=== PATIENT | male | born 1990 | race African-American/Black ===

== ENCOUNTER → 2018-07-23 | Outpatient (REF) | payer OTHER ==
[2018-07-23 14:57] LABS: SEMEN APPEARANCE OPAQUE (OPAQUE)
[2018-07-23 14:59] LABS: SEMEN VISCOSITY VISCOUS (LIQUID); SEMEN VOLUME 2.5 ml (4.0-5.0)
[2018-07-23 15:00] LABS: SEMEN pH 8.5 (7.0-8.0); SPERM CONCENTRATION 57.4 M/ml (>=15.0); WBC CONCENTRATION <=1 M/ml (<=1 M/ml)
== END ==
LOC: M LAB REF 13:59
PROVIDERS: ATTEND Obstetrics & Gynecology
DX: N46.9 Male infertility, unspecified (principal)

== ENCOUNTER 2018-11-27 09:38 | Emergency (ER) | payer OTHER ==
[~2018-11-27] VITALS: Ht 170.2 cm; Wt 72.7 kg
[2018-11-27] MEDS ORDERED: NAPROXEN 250 MG TAB PO ONE (10:00)
[2018-11-27] MEDS ORDERED: ACETAMINOPHEN 500 MG TAB PO ONE (10:00)
--- NOTE | 2018-11-27 10:34 | REP ---
Thoracic spine series: Three views. History: Remote trauma. Pain. Findings: Thoracic vertebral body heights are preserved. Alignment is normal. Disc spaces are maintained. No paravertebral soft-tissue swelling or mass is seen. Pedicles and posterior elements are intact. Impression: Negative thoracic spine radiographs. Electronically Signed by Jonathon Mancera MD 11/27/2018 10:26 A
--- NOTE | 2018-11-27 10:35 | REP ---
Lumbar spine series: Five views. History: Remote trauma. Rule out compression fracture versus degenerative disc disease. Findings: Lumbar vertebral body heights are preserved. Alignment is normal. Disc spaces are maintained. Pedicles and posterior elements are intact. There is no evidence of spondylolisthesis, spondylolysis, or fracture. Transverse process sees pedicles and posterior elements appear intact. Psoas margins are symmetric. Sacrum and SI joints are intact. Impression: Negative lumbar spine radiographs. Electronically Signed by Jonathon Mancera MD 11/27/2018 10:27 A
[2018-11-27] MEDS ORDERED: CYCL10TA PO (11:12)
[2018-11-27] MEDS ORDERED: NAPR-837 PO (11:12)
[2018-11-27 11:17] VITALS: BP 121/74
== END 2018-11-27 11:29 | disposition home or self-care (01) ==
LOC: M ED 09:38
DX: M54.5 Low back pain (principal); M62.838 Other muscle spasm